=== PATIENT | female | born 1990 | race Caucasian/White ===

== ENCOUNTER → 2017-07-10 | Outpatient (CLI) | payer BC | END | disposition home or self-care (01) | LOC: C.PAPS 12:39 | PROVIDERS: ATTEND Obstetrics & Gynecology | DX: Z01.419 Encounter for gynecological examination (general) (routine) without abnormal findings (principal) ==

== ENCOUNTER 2025-05-04 05:28 | Inpatient (IN) ==
--- NOTE | 2025-04-25 13:12 | Anesthesiology Consultation ---
Date of Service April 25, 2025 Assessment & Plan (1) Encounter for pre-operative examination: Chart Review Chart Review: file clerk data entry initiated -Infectious Disease screening: Per PAT nursing assessment on 04/25/25. No known infectious disease contacts in past 10 days or current infectious disease symptoms. No recent travel outside the country. History Surgery Operation Date: 05/04/25 07:30 Proposed Procedures p Section (Delivery of Baby Through Abdominal Incision) - Cyndie Martinez MD Height/Weight Height: 5 ft 4.5 in Weight: 76.657 kg Allergies Allergy/AdvReac Type Severity Reaction Status Date / Time No Known Drug Allergies Allergy Verified 04/25/25 12:50 Medications Home Medications Medication Instructions Recorded Confirmed Last Taken ferrous sulfate 325 mg (65 mg 325 mg PO DAILY 04/25/25 04/25/25 Unknown iron) tablet (Iron (ferrous sulfate)) magnesium 200 mg tablet 400 mg PO DAILY 04/25/25 04/25/25 Unknown omega-3 fatty acids 1,000 mg PO DAILY 04/25/25 04/25/25 Unknown vit no.95-ferrous 1 tab PO DAILY 04/25/25 04/25/25 Unknown fumarate 28 mg-folic acid 800 mcg tablet () Past Medical History Medical History (Updated 04/25/25 @ 13:15 by Vanna Bauman PA-C) Anxiety disorder Depression Genetic carrier of spinal muscular atrophy per PAT nursing assessment History of chicken pox childhood History of COVID-19 (2020) no hosp; resolved Palpitation intermittent >> triggers include caffeine, stress, anxiety; no cardiology PCOS (polycystic ovarian syndrome) Past Family History Family History Family/Other Colorectal cancer great grandparents Denies family history of Ovarian cancer Breast cancer Past Surgical History Surgical History H/O LEEP H/O oral surgery H/O sinus surgery Social History Smoking Status: Former smoker Do You Dip or Chew Tobacco: No Smoking End Date: quit 2011 Hx Alcohol Use: No Hx Substance Use: No substance use type: does not use
[2025-05-04] MEDS: LACTATED RINGER'S 1,000 ML IV SCH ×3 (05:45→13:23)
[2025-05-04] MEDS: ACETAMINOPHEN 500 MG TAB PO SCH (06:01)
[2025-05-04 06:19] LABS: Hematocrit (blood only) 34.2 % (37.0-47.0); Hemoglobin 11.8 g/dl (12.0-16.0); Mean Corpuscular Hemoglobin 33.1 pg (25.0-34.0); Mean Corpuscular Volume 95.8 fL (80.0-100.0); Platelet Count 147 K/uL (130-400); RDW Standard Deviation 49.5 fL (36.4-46.3); Red Blood Count 3.57 M/uL (4.20-5.40); White Blood Count 9.39 K/ul (4.8-10.8)
[2025-05-04] MEDS ORDERED: PHENYLEPHRINE HCL 25 MG/250 ML NSS IV ONE (06:22)
[2025-05-04] MEDS ORDERED: MoRPHine SULFATE PF 1 MG/ML 10 ML AMP/VIAL ONE (06:22)
[2025-05-04] MEDS ORDERED: OXYTOCIN 10 UNITS/ML VIAL ONE (06:22)
[2025-05-04] MEDS ORDERED: ONDANSETRON INJ 2 MG/ML 2 ML VIAL ONE (06:22)
[2025-05-04] MEDS ORDERED: DEXAMETHASONE SOD INJ 4 MG/ML VIAL ONE (06:22)
--- NOTE | 2025-05-04 07:35 | History & Physical Bridge Note ---
Date of Service May 04, 2025 History & Physical Bridge Note I have examined the patient, reviewed the History & Physical and in the interval since the performance of the History & Physical I have noted the following changes of clinical significance: no changes noted. Breech position confirmed at bedside with US.
[2025-05-04] MEDS: CITRIC ACID/SODIUM CITRATE 15 ML UDC PO SCH (07:46)
[2025-05-04] MEDS ORDERED: diphenhydrAMINE 50 MG/ML VIAL IV PRN (09:09)
[2025-05-04] MEDS ORDERED: NALOXONE HCL 0.4 MG/1 ML VIAL/CARP IV PRN (09:09)
[2025-05-04] MEDS ORDERED: NALOXONE HCL 1 MG in SODIUM CHLORIDE 0.9% 1,000 ML IV PRN (09:09)
[2025-05-04] MEDS ORDERED: NALBUPHINE HCL INJ 10 MG/ML AMP IV PRN (09:09)
[2025-05-04] MEDS ORDERED: ONDANSETRON INJ 2 MG/ML 2 ML VIAL IV PRN (09:09)
[2025-05-04] MEDS ORDERED: LACTATED RINGER'S 500 ML IV PRN (09:09)
[2025-05-04] MEDS ORDERED: MoRPHine SULFATE PF 1 MG/ML 10 ML AMP/VIAL INT SPINAL ONE (09:09)
[2025-05-04] MEDS ORDERED: PROMETHAZINE 6.25 MG/50.25 ML BAG IV PRN (09:09)
[2025-05-04] MEDS ORDERED: NALOXONE HCL 0.08 MG in SYRINGE 1.8 ML IV PRN (09:09)
[2025-05-04] MEDS ORDERED: DC INTRASPINAL MORPHINE SCH (09:15)
[2025-05-04] MEDS ORDERED: NO NARCOTICS OR SEDATIVES SCH (09:15)
[2025-05-04] MEDS ORDERED: SODIUM CHLORIDE 0.9% 1,000 ML IV SCH (09:15)
--- NOTE | 2025-05-04 09:51 | Operative Report ---
PG Post Operative Report Pre & Post Diagnosis Operation Date: 05/04/25 07:30 Pre-Op Diagnosis: 1. 39+ weeks Gestation. 2. Breech presentation and scheduled primary C/S. Post-Op Diagnosis: 1. 39+ weeks Gestation. 2. Breech presentation and scheduled primary C/S. I identified the patient and participated in the time-out.: Yes Procedure Operation Date: 05/04/25 07:30 Actual Procedures Primary Low Transverse Section Surgeon Cyndie Martinez MD Head Of Transport Logistics Shabana Vera RN Estimated Blood Loss 363 Findings Consistent with Post-Op Diagnosis Specimens placenta, cord blood Anesthesia Type Spinal Complications none Disposition Accompanied Patient To Recovery: Yes Disposition: L&D Description of Procedure The patient was placed operating table in the supine position with a leftward tilt. She was prepped and draped in standard sterile fashion. The anesthetic was tested and found to be adequate. A time-out was held, identifying correct patient, procedure, positioning and preoperative antibiotics. There were no concerns. A Pfannenstiel skin incision was made with a knife and taken down to the underlying layer of fascia. The fascia was incised in the midline with the knife and taken out laterally with scissors. The superior edge of the fascial incision was grasped, elevated and dissected off the underlying rectus both superiorly and inferiorly. The muscles were bluntly in the midline. The peritoneum was entered bluntly. The incision was then stretched. The bladder retractor was placed. The vesicouterine peritoneum was identified, entered with scissors and taken out laterally with scissors. The bladder flap was created digitally. A hysterotomy incision was created transversely in the lower uterine segment, final entry being accomplished in a blunt manner with the mincing machine operator's fingers. Clear amniotic fluid was encountered. The mincing machine operator's hand was used to elevate the hips to the hysterotomy. The body was delivered using mild fundal pressure, limbs being swept free in physiologic fashion, and head delivered with neck maintained in flexion. The cord was wrapped 3x completely around the neck, once around the waist and again around the ankles. Cord was clamped and cut and the infant was then handed off to the awaiting cue selector. Cord blood was obtained. The placenta was Manually extracted. The uterus was exteriorized and cleared of all clot and debris with moistened laparotomy sponges. The hysterotomy incision was repaired in two layers, the first in a running locked layer, the second in an imbricating layer. The ovaries and tubes were seen to be normal bilaterally. The uterus was gently replaced in the abdomen, and the gutters were cleared of clot and debris. A final inspection of the hysterotomy revealed good hemostasis. The rectus muscles were allowed to reapproximate naturally. The fascia was then reapproximated with 1 Vicryl in a running nonlocked manner. The fascia was examined and found to be free of defect following closure. The subcutaneous tissue was copiously irrigated and reapproximated with 0-chromic, then the skin edges were closed with 4-0 monocryl in a subcuticular fashion. A dermabond dressing was applied. The mcfadden was found to be draining clear yellow urine at completion of the procedure. I attest to the content of the Intraoperative Record and any orders documented therein. Any exceptions are noted below. I attest to the content of the Intraoperative Record and any orders documented therein. Any exceptions are noted below. OB Procedure Charges 31052
[2025-05-04] MEDS ORDERED: OXYTOCIN 30 UNITS/NSS 30 UNITS/500 ML BAG IV PRN (09:54)
[2025-05-04] MEDS ORDERED: HYDROCORTISONE ACETATE 25 MG SUPP PR PRN (09:54)
[2025-05-04] MEDS ORDERED: BENZOCAINE 20% SPRY 85 APPLN/85 GM CAN EXT PRN (09:54)
[2025-05-04] MEDS: KETOROLAC 30 MG/ML VIAL ONE (10:37)
[2025-05-04] MEDS ORDERED: SODIUM CHLORIDE 0.9% PF INJ 10 ML VIAL ONE (11:41)
[2025-05-04] MEDS ORDERED: fentANYL 2 MCG/ML BUPIVacaine 0.125%-NSS 100ML BAG ONE (11:41)
[2025-05-04] MEDS ORDERED: LIDOCAINE 2%/EPINEPHRINE 1:200,000 20 ML PF ONE (11:41)
[2025-05-04] MEDS ORDERED: BUPIVACAINE 0.25% PF 30 ML VIAL ONE (11:41)
[2025-05-04] MEDS: KETOROLAC 30 MG/ML VIAL IV SCH (13:02)
[2025-05-04] MEDS: HYDROmorphone INJ 0.5 MG/0.5 ML SYR IV PRN (13:27)
[2025-05-04] MEDS: ACETAMINOPHEN 325 MG TAB PO PRN (16:21)
[2025-05-04] MEDS: DOCUSATE SODIUM 100 MG CAP PO SCH (20:56)
[2025-05-04] MEDS: SIMETHICONE 80 MG CHEW PO PRN (20:56)
[2025-05-05] MEDS: DIPHTHER/TETAN/PERTUS Vaccine (Tdap, Adol/Adult) 0.5mL IM ONE (03:08)
--- NOTE | 2025-05-05 07:01 | Obstetrical Progress Note ---
Date of Service May 05, 2025 Assessment & Plan (1) state: POD#1 routine care Subjective Ambulation: limited ambulation Voiding: no voiding problems Passing Gas:: Yes Diet Tolerance:: regular diet Lochia:: Small Feeding Type:: breast feeding Physical Exam Constitutional WD/WN, vitals as above Eyes PERRL, conjunctivae normal, anicteric sclerae Neck normal visual inspection Respiratory normal respiratory effort and able to speak in complete sentences; no respiratory distress and no labored breathing Cardiovascular Rate/Rhythm: regular rate and regular rhythm Extremities: no edema Chest (Breasts) Chest: normal inspection of chest Gastrointestinal (Abdomen) Inspection/Auscultation: abdomen normal to inspection Soft, postgravid Incision c/d/i Psychiatric A+Ox3, euthymic affect Genitourinary OB Exam Abdomen: + fundal height Fundus: + firm and + relation to umbilicus (fundus just below umbilicus); not tender Results & Data Vital Signs (Past 12 Hours) Vital Signs Temp Pulse Pulse Pulse Resp BP Pulse Ox 05/05/25 03:45 97.7 F 55 L 18 116/67 98 05/05/25 03:07 16 99 05/05/25 02:47 18 99 05/05/25 01:41 18 99 05/05/25 00:59 16 97 05/04/25 23:45 16 99 05/04/25 23:45 98.4 F 78 16 125/71 99 05/04/25 22:18 16 97 05/04/25 21:50 16 97 05/04/25 20:39 18 96 05/04/25 19:45 18 98 05/04/25 19:45 05/04/25 19:45 98.1 F 84 18 110/65 98 O2 Del Method 05/05/25 03:45 Room Air 05/05/25 03:07 05/05/25 02:47 05/05/25 01:41 05/05/25 00:59 05/04/25 23:45 05/04/25 23:45 Room Air 05/04/25 22:18 05/04/25 21:50 05/04/25 20:39 05/04/25 19:45 05/04/25 19:45 Room Air 05/04/25 19:45 Room Air
[2025-05-05 07:14] LABS: Hematocrit (blood only) 33.8 % (37.0-47.0); Hemoglobin 11.3 g/dl (12.0-16.0); Mean Corpuscular Hemoglobin 32.1 pg (25.0-34.0); Mean Corpuscular Volume 96.0 fL (80.0-100.0); Platelet Count 138 K/uL (130-400); RDW Standard Deviation 49.5 fL (36.4-46.3); Red Blood Count 3.52 M/uL (4.20-5.40); White Blood Count 11.07 K/ul (4.8-10.8)
[2025-05-05] MEDS: PRENATAL VITAMIN 1 TAB PO SCH (07:45)
[2025-05-05] MEDS: IBUPROFEN 600 MG TAB PO PRN (10:11)
[2025-05-05] MEDS ORDERED: diphenhydrAMINE Capsule 25 MG CAP PO PRN (11:33)
[2025-05-05] MEDS ORDERED: DIPHTHER/TETAN/PERTUS Vaccine (Tdap, Adol/Adult) 0.5mL IM ONE (11:33)
[2025-05-05] MEDS ORDERED: HYDROCORTISONE ACETATE 25 MG SUPP PR PRN (11:33)
[2025-05-05] MEDS ORDERED: PROMETHAZINE 12.5 MG/50.5 ML BAG IV PRN (11:33)
[2025-05-05] MEDS ORDERED: BENZOCAINE 20% SPRY 85 APPLN/85 GM CAN EXT PRN (11:33)
[2025-05-05] MEDS ORDERED: SENNA 8.6 MG TAB PO PRN (11:33)
[2025-05-05] MEDS ORDERED: HYDROmorphone INJ 0.5 MG/0.5 ML SYR IV PRN (11:33)
[2025-05-05] MEDS ORDERED: CALCIUM CARBONATE 500 MG CHEWABLE TAB PO PRN (11:33)
[2025-05-05] MEDS ORDERED: ONDANSETRON INJ 2 MG/ML 2 ML VIAL IV PRN (11:33)
[2025-05-05] MEDS ORDERED: diphenhydrAMINE 50 MG/ML VIAL IV PRN (11:33)
[2025-05-05] MEDS ORDERED: KETOROLAC 30 MG/ML VIAL IV SCH (11:45)
[2025-05-05] MEDS ORDERED: Nursing to Pharmacy Communication SCH ×2 (12:30)
[2025-05-05] MEDS ORDERED: SIMETHICONE 80 MG CHEW PO SCH (13:00)
[2025-05-05] MEDS: IBUPROFEN 600 MG TAB PO SCH (15:37)
[2025-05-05] MEDS: ACETAMINOPHEN 325 MG TAB PO SCH (15:37)
[2025-05-05] MEDS: MAGNESIUM HYDROXIDE SUSP 30 ML UDC PO PRN (16:11)
[2025-05-05] MEDS ORDERED: ACETAMINOPHEN 325 MG TAB PO SCH (17:45)
[2025-05-05] MEDS ORDERED: DOCUSATE SODIUM 100 MG CAP PO SCH (21:00)
--- NOTE | 2025-05-06 07:19 | Obstetrical Progress Note ---
Date of Service May 06, 2025 Assessment & Plan (1) state: Plan Doing well. Routine care. Day #:: 2 Subjective Ambulation: ambulating normally Voiding: no voiding problems Passing Gas:: Yes Diet Tolerance:: regular diet Lochia:: Small Feeding Type:: breast feeding Pain controlled Physical Exam Constitutional WD/WN, vitals as above Respiratory normal respiratory effort, lungs clear to auscultation Cardiovascular RRR, no murmur, no edema Extremities: no calf tenderness and no edema Gastrointestinal (Abdomen) soft, nt, nd, appropriately tender ff/appro tender at 1 below u Psychiatric A+Ox3, euthymic affect Results & Data Vital Signs (Past 12 Hours) Vital Signs Temp Pulse Resp BP Pulse Ox O2 Del Method 05/06/25 00:50 36.4 C L 71 16 114/70 99 Room Air 05/05/25 20:39 36.7 C 75 18 102/65 100 Room Air
[2025-05-06 07:27] LABS: Hematocrit (blood only) 37.2 % (37.0-47.0); Hemoglobin 12.9 g/dl (12.0-16.0); Immature Granulocytes # (auto) 0.09 K/uL (0.01-0.20); Immature Granulocytes % (auto) 0.9 %; Mean Corpuscular Hemoglobin 33.0 pg (25.0-34.0); Mean Corpuscular Volume 95.1 fL (80.0-100.0); Platelet Count 142 K/uL (130-400); RDW Standard Deviation 49.6 fL (36.4-46.3); Red Blood Count 3.91 M/uL (4.20-5.40); White Blood Count 10.21 K/ul (4.8-10.8)
[2025-05-06] MEDS ORDERED: PRENATAL VITAMIN 1 TAB PO SCH (08:00)
[2025-05-06] MEDS: FERROUS SULFATE 325 MG TAB PO SCH (08:06)
--- NOTE | 2025-05-06 10:24 | Communication Note ---
Date of Service: May 06, 2025 Contacted by nursing due to dizziness. Had been meeting routine pp milestones and feeling well. Was laying down and noted sudden onset dizz iness. Prior to epsisode, VSS wnl. During episode of dizziness, P43 and BP 106/64 and suspected arrhythmia auscultated by nursing. Nursing put her on side and rechecked vitals, return back to wnl. Tolerating PO and has been hydrating, H/H 12.9/37.2 this AM. Pt noting stable dizziness, no CP, SOB, n/v associated with it. Auscultate a skipped beat approx every 4th beat but pulse is regular in b/w. Pt notes she has had palpitations during but not necessarily w/o assoc dizziness. Drinking black tea but usual amount, no new meds this am. Had normal cbc this am so will check cmp and ekg. Will try repositioning in the interim
[2025-05-06] MEDS ORDERED: KETOROLAC 30 MG/ML VIAL IV PRN (11:33)
[2025-05-06] MEDS ORDERED: IBUPROFEN 600 MG TAB PO SCH (11:45)
--- NOTE | 2025-05-06 12:09 | Hospitalist Consultation ---
Date of Consultation May 06, 2025 Assessment & Plan (1) PVCs (premature ventricular contractions): (2) Palpitation: (3) state: (4) S/P : (5) Lightheadedness: (6) Median nerve injury: (7) Anxiety disorder: Plan Yudy is a 34yo day 2 s/p uncomplicated for breech presentation, medical history of anxiety and prior palpitations with triggers of caffeine and stress. Medicine consultation ordered for sudden onset of lighthea dedness and palpitations for 1-2hrs this AM, notably had a cup of caffeinated tea this AM and is reportedly sleep-deprived. Lightheadedness improved but still feeling some "fluttering" in her chest. Continue monitoring as usual on floor, will defer telemetry as likelihood of true arrhythmia is unlikely, but if becomes symptomatic again will reassess. #PVCs on EKG, palpitations Ectopy likely related to a combination of stress from sleep deprivation and physical trauma from , as well as caffeine intake. Currently still feeling "fluttering" but lightheadedness has essentially resolved. CMP revealing no electrolyte abnormalities, mag normal as well Order EKG for any reported chest pain, shortness of breath, significant lightheadedness/dizziness, or near-syncope Consider repeating BMP in AM Would recommend avoiding any caffeine for the next week or two to decrease likelihood of symptomatic PVCs/ectopy Encourage good sleep sleep at night: dark and quiet room, consider having baby sleep in alternate room as good sleep quality will help decrease cortisol/catecholamine secretion and thus decrease likelihood of symptomatic PVCs/ectopy #Lightheadedness/presyncope Most likely a symptom of pt's PVCs due to prolonged compensatory pause - since resolution, pt has asymptomatically walked to the bathroom with assistance Would encourage to continue slowly getting out of bed and slow supported/supervised ambulation to decrease likelihood of symptoms - tolerating diet without concerns, continue as tolerated - CBC stable #Median nerve pain RUE likely due to traumatic blood draw, though no significant deficits or concerns on exam Continue ibuprofen as needed Code: full Diet: regular VTE ppx: none Dispo: Supervising Physician Co-Signing Physician Notes I personally examined the patient and verified all hough points of history and exam, discussed case, and agree with decision making with Dr Powers feeling better now. had palpitations and some lightheadedness earlier vitals noted nad heent nc at mmm breathing unlabored no accessory muscles good effort skin no rashes no pallor or icterus EKG w PVCs and appropriate but notable compensatory pauses palpitations/lightheadedness -fits exceedingly well w ectopy. reassurance, education. discussed stress/lack of sleep/caffeine as common triggers hospitalist team will sign off but happy to be of further assistance if needed. History of Present Illness Reason for Consultation: lightheadedness, palpitations Requesting Physician: Addie Keith MD Attending Physician: Cyndei Martinez MD History of Present Illness Yudy is a 34yo day 2 s/p uncomplicated for breech presentation. Medical history includes anxiety and prior palpitations with triggers of caffeine and stress. Endorses uncomplicated hospital course since the , but had sudden onset of lightheadedness and palpitations around 10:20am on 05/06/25, which lasted a little over an hour before resolving, now only minimal lightheadedness accompanied by some chest "fluttering." - reports she ate a complete breakfast and had two cups of tea, one of which was decaf - denies any sensation that the room was spinning, denies any nausea or vomiting. - states she was able to get up slowly and walk to the bathroom after the lightheadedness improved, denies any recurrence of lightheadedness or dizziness. - endorses she has been sleep-deprived for the last 2 days Additionally notes she has been having some tingling in her RUE that started after a blood draw may have traumatized a nerve, as she felt an "electric shock" sensation during the insertion. Currently notes some tingling in R 1-3 digits and some radiation up forearm. Lastly notes sensation of b/l pressure in her ears, started with L but now equally in both. Denies any recent URI, ear pain, hearing changes. Denies any fever, body aches, chills, sweats, blurry vision, double vision, neck pain, SOB, chest pain, abdominal pain, numbness/tingling of b/l LE. Allergies Allergy/AdvReac Type Severity Reaction Status Date / Time No Known Drug Allergies Allergy nkda Verified 05/04/25 05:44 Home Medications Medication Instructions Recorded Confirmed Type ferrous sulfate 325 mg (65 mg 325 mg PO DAILY 04/25/25 05/04/25 History iron) tablet (Iron (ferrous sulfate)) magnesium 200 mg tablet 400 mg PO DAILY 04/25/25 05/04/25 History vit no.95-ferrous 1 tab PO DAILY 04/25/25 05/04/25 History fumarate 28 mg-folic acid 800 mcg tablet () oxycodone 5 mg tablet 5 - 10 mg (1 - 2 x 5 mg) PO Q3H 05/06/25 Rx PRN pain #10 tabs Patient History Medical History (Updated 05/06/25 @ 12:11 by Blaine Powers DO) Genetic carrier of spinal muscular atrophy per PAT nursing assessment History of COVID-19 (2020) no hosp; resolved History of chicken pox childhood Palpitation intermittent >> triggers include caffeine, stress, anxiety; no cardiology PCOS (polycystic ovarian syndrome) Depression Anxiety disorder Surgical History (Updated 05/06/25 @ 12:11 by Blaine Powers DO) H/O LEEP H/O oral surgery H/O sinus surgery Family History Family/Other Colorectal cancer great grandparents Denies family history of Ovarian cancer Breast cancer Social History Smoking Status: Former smoker Tobacco Type: Cigarettes Smoking End Date: quit 2011; Second Hand Exposure: No; Do You Dip or Chew Tobacco: No; Tobacco Cessation Education Requested by Patient: No Hx Alcohol Use: No Hx Substance Use: No Preferred Language: Indonesian Communication Ability: Effective Equipment Maintenance Engineer Required: No Beliefs That Will Affect Care: None marital status: marital status details: elmer Mane (36) [phone] Current Living Situation: Spouse current occupational status: employed current occupation: [employer] Other Information That Helps Us Care for You: No Feels Safe at Home: Yes Safety Concerns: Feels Safe At This Time Assistive Devices: None Physical Exam Physical Exam: Gen: A&Ox3, no acute distress HEENT: EOM intact, anicteric sclerae, PERRL b/l, b/l ear canals and TMs unremarkable CV: intermittently irregular rhythm, +s1/s2, no m/r/g, radial pulses 2+ b/l Resp: clear to auscultation b/l, no increased WOB, no w/r/R GI/Abd: +BS, abdominal with mild tenderness to palpation, incision scar apparently healing well MSK: 5/5 strength in b/l UE and LE, trace LE edema Neuro: borderline +Tinel's sign in RUE, no focal deficits, no facial droop, speech intact Psych: mood-affect congruence, good eye contact Results & Data Results & Data Vital Signs (Past 12 Hours) Vital Signs Temp Pulse Pulse Pulse Pulse Resp BP 05/06/25 09:30 72 76 116/68 05/06/25 09:15 43 L 44 L 106/64 05/06/25 08:20 36.8 C 71 20 118/72 05/06/25 00:50 36.4 C L 71 16 114/70 Pulse Ox O2 Del Method 05/06/25 09:30 05/06/25 09:15 05/06/25 08:20 05/06/25 00:50 99 Room Air Resident Activity Tracking Resident Involvement: Resident Care Provided Care Provided: Adult Hospital Medicine (6) Median nerve injury Encounter type: initial encounter Laterality: right Location of peripheral nerve injury: forearm Qualified Code(s): S54.11XA - Injury of median nerve at forearm level, right arm, initial encounter (7) Anxiety disorder Anxiety disorder type: unspecified anxiety disorder Qualified Code(s): F41.9 - Anxiety disorder, unspecified
--- NOTE | 2025-05-06 12:14 | Electrocardiogram Report ---
Test Reason : Blood Pressure : */* mmHG Vent. Rate : 84 BPM Atrial Rate : 84 BPM P-R Int : 142 ms QRS Dur : 68 ms QT Int : 368 ms P-R-T Axes : 66 53 55 degrees QTcB Int : 434 ms Sinus rhythm with frequent Premature ventricular complexes Possible Left atrial enlargement Borderline ECG When compared with ECG of 18-Jun-2018 17:55, Premature ventricular complexes are now Present Confirmed by Noe Bishop ([id number]) on 05/06/2025 12:13:36 PM Referred By: Cyndie Martinez Confirmed By: Noe Bishop
[2025-05-06 12:35] LABS: Alanine Aminotransferase 13.0 U/L (7-52); Albumin Globulin Ratio 1.2 (0.9-2); Alkaline Phosphatase 127.0 U/L (34-104); Anion Gap 6.0 (3-11); Bilirubin,Total 0.3 mg/dl (0.2-1.0); Blood Urea Nitrogen 8.0 mg/dl (6-23); Calcium 8.9 mg/dl (8.6-10.3); Carbon Dioxide 27.0 mmol/L (21-32); Chloride 103.0 mmol/L (98-107); Creatinine Clr Calc Pharmacy 101.6 ml/min; Globulin 2.7 gm/dl (2.5-4.0); Glucose 97.0 mg/dl (70-99(Fasting)); Magnesium 2.0 mg/dl (1.7-2.4); Potassium 3.9 mmol/L (3.5-5.1); Sodium 136.0 mmol/L (136-145); Total Protein 6.0 gm/dl (6.0-8.3)
--- NOTE | 2025-05-06 17:50 | Billing Data ---
Date of Service May 06, 2025 Coding Level of Care Code 22582 IN/OBS CONSULT LVL 3,45M
[2025-05-07 03:31] VITALS: O2SAT 99
[2025-05-07 08:13] LABS: Hematocrit (blood only) 39.0 % (37.0-47.0); Hemoglobin 13.4 g/dl (12.0-16.0)
[2025-05-07 08:36] VITALS: BP 132/84; RESP 20; TEMP 97.9
--- NOTE | 2025-05-07 09:00 | Obstetrical Progress Note ---
Date of Service May 07, 2025 Assessment & Plan (1) state: (2) S/P : (3) PVCs (premature ventricular contractions): Plan 34 yo POD 3 from [facility], doing well -Meeting all pp milestones. Only rare palpitations since episode yesterday, hospitalist consult in agreement likely just related to ectopy. W/U was wnl yesterday, will make sure labs stable today -O+/rubella immune/ -f/u 6 weeks for appt, stable for dc today Subjective Ambulation: ambulating normally Voiding: no voiding problems Passing Gas:: Yes Diet Tolerance:: regular diet Lochia:: Small Pain well managed with medication Occ palpitations overnight but feeling much better, no further dizziness Review of Systems Denies fevers, chills, n/v, SPEAR, CP, SOB Physical Exam Constitutional WD/WN, vitals as above no acute distress Respiratory normal respiratory effort, lungs clear to auscultation Cardiovascular RRR, no murmur, no edema Gastrointestinal (Abdomen) Percussion/Palpation: abdomen soft; abdomen nontender fundus firm at umbilicus and NT, incision c/d/i Musculoskeletal BLE symmetric, nonerythematous, nontender Results & Data Vital Signs (Past 12 Hours) Vital Signs Temp Pulse Resp BP Pulse Ox O2 Del Method 05/07/25 07:15 Room Air 05/07/25 07:15 97.9 F 76 20 132/84 Room Air 05/07/25 03:25 97.7 F 62 16 108/68 99 Room Air 05/06/25 23:50 97.7 F 71 16 118/71 100 Room Air
[2025-05-07 09:07] LABS: Anion Gap 9.0 (3-11); Blood Urea Nitrogen 7.0 mg/dl (6-23); Calcium 9.4 mg/dl (8.6-10.3); Carbon Dioxide 25.0 mmol/L (21-32); Chloride 106.0 mmol/L (98-107); Glucose 66.0 mg/dl (70-99(Fasting)); Potassium 4.0 mmol/L (3.5-5.1); Sodium 140.0 mmol/L (136-145)
[2025-05-07 09:14] LABS: Creatinine Clr Calc Pharmacy 129.0 ml/min
[2025-05-07 10:25] VITALS: PULSE 78
[2025-05-07] MEDS ORDERED: IBUPROFEN 600 MG TAB PO PRN (11:33)
[2025-05-07] MEDS ORDERED: ACETAMINOPHEN 325 MG TAB PO PRN (17:33)
--- NOTE | 2025-05-08 14:07 | Discharge Summary ---
Date of Service May 08, 2025 Admission Exam (Per Admitting) Constitutional WD/WN, vitals as above Eyes PERRL, conjunctivae normal, anicteric sclerae Neck normal visual inspection Respiratory normal respiratory effort and able to speak in complete sentences; no respiratory distress and no labored breathing Cardiovascular Rate/Rhythm: regular rate and regular rhythm Extremities: no edema Chest (Breasts) Chest: normal inspection of chest Gastrointestinal (Abdomen) Inspection/Auscultation: abdomen normal to inspection Psychiatric A+Ox3, euthymic affect Genitourinary OB Exam Abdomen: + fundal height Discharge Data Consultations 05/04/25 05:28 Consult Anesthesiology Stat Procedures Performed Operation Date: 05/04/25 07:30 Actual Procedures p Section(Bilateral) - Cyndie Martinez MD Hospital Course (1) state: (2) S/P : (3) PVCs (premature ventricular contractions): Plan 34 yo POD 3 from [facility], doing well -Meeting all pp milestones. Only rare palpitations since episode yesterday, hospitalist consult in agreement likely just related to ectopy. W/U was wnl yesterday, will make sure labs stable today -O+/rubella immune/ -f/u 6 weeks for appt, stable for dc today Coding Level of Care Code 22264 IN/OBS DISCH 30 MIN/LESS Diagnoses state Z39.2 S/P Z98.891 PVCs (premature ventricular contractions) I49.3
--- NOTE | 2025-05-09 09:26 | Anesthesiology Progress Note ---
Date of Service May 09, 2025 Anesthesia Post Procedure Pain Intensity Abdomen: Pain Intensity: 2 Transfer of Care Handoff Completed per policy Notes Mental Status: alert / awake / arousable and participated in evaluation Patient Amnestic to Procedure: Yes Nausea / Vomiting: adequately controlled Pain: adequately controlled Airway Patency, RR, SpO2: stable & adequate BP & HR: stable & adequate Hydration State: stable & adequate Anesthetic Complications: no major complications apparent and Pt Satisfied with anesthetic care
== END 2025-05-07 13:16 | disposition home or self-care (01) | DRG 787 ==
LOC: 4S1 05:28 → EDSTATUS 07:30 → 4E2 12:05